=== PATIENT | female | born 1960 | race Caucasian/White ===

== ENCOUNTER 2018-04-16 13:22 | Emergency (ER) | payer OTHER ==
[~2018-04-16] VITALS: Ht 157.5 cm; Wt 59.0 kg
[~2018-04-16 13:22] MED LIST: CITA10S PO; Cyclobenzaprine5 MG PO; LEVSOD50 PO; Naprosyn500 MG PO
[2018-04-16] MEDS ORDERED: Norco 5-325 Ta1 EACH PO (14:49)
[2018-04-16] MEDS ORDERED: Baclofen10 MG PO (14:49)
== END 2018-04-16 14:55 | disposition home or self-care (01) ==
LOC: ER 13:22
DX: M62.830 Muscle spasm of back (principal); E03.9 Hypothyroidism, unspecified; Z87.891 Personal history of nicotine dependence; Z88.5 Allergy status to narcotic agent; Z88.1 Allergy status to other antibiotic agents; Z79.899 Other long term (current) drug therapy
CPT/HCPCS: 96372; 99283; J1885

== ENCOUNTER 2018-04-18 14:06 | Emergency (ER) | payer OTHER ==
[~2018-04-18] VITALS: Ht 157.5 cm; Wt 59.0 kg
[~2018-04-18 14:06] MED LIST changes: +Baclofen10 MG PO; +Norco 5-325 Ta1 EACH PO
[2018-04-18] MEDS ORDERED: Ultram50 MG PO (15:01)
== END 2018-04-18 15:05 | disposition home or self-care (01) ==
LOC: ER 14:06
DX: Z76.0 Encounter for issue of repeat prescription (principal); Z88.5 Allergy status to narcotic agent; Z88.1 Allergy status to other antibiotic agents; Z79.899 Other long term (current) drug therapy; Z87.891 Personal history of nicotine dependence
CPT/HCPCS: 99281

== ENCOUNTER → 2021-08-25 | Outpatient (CLI) | payer OTHER ==
[~2021-08-25] MED LIST changes: +BENZ100A PO; +CITA20 PO; +Citalopram HBr20 MG PO; +DIAZ5 PO; +HYDPAM50 PO; +Ultram50 MG PO
[2021-08-25 16:48] LABS: BASOPHILS ABSOLUTE AUTO 0.04 K/mm3 (0.00-0.23); BASOPHILS PERCENT AUTO 1 % (0-2); EOSINOPHILS ABSOLUTE AUTO 0.08 K/mm3 (0.00-0.68); EOSINOPHILS PERCENT AUTO 2 % (0-6); Hematocrit 41.5 % (33.0-51.0); Hemoglobin 13.7 g/dL (11.5-16.0); IMMATURE GRAN ABSOLUTE AUTO 0.01 K/mm3 (0.00-0.10); IMMATURE GRAN PERCENT AUTO 0 % (0-1); LYMPHOCYTES ABSOLUTE AUTO 2.38 K/mm3 (0.84-5.20); LYMPHOCYTES PERCENT AUTO 44 % (21-46); MONOCYTES ABSOLUTE AUTO 0.48 K/mm3 (0.16-1.47); MONOCYTES PERCENT AUTO 9 % (4-13); Mean Corpuscular HGB 29.9 pg (26.0-34.0); Mean Corpuscular Volume 91 fL (80-100); Mean Platelet Volume 11.2 fL (9.1-12.4); NEUTROPHILS ABSOLUTE AUTO 2.47 K/mm3 (1.96-9.15); NEUTROPHILS PERCENT AUTO 45 % (41-73); Platelet Count 259 K/mm3 (150-400); RDW Coefficient Variation 12.8 % (11.7-14.2); RDW Standard Deviation 42.1 fL (35.1-46.3); Red Blood Cell Count 4.58 M/mm3 (3.80-5.20); White Blood Cell Count 5.46 K/mm3 (4.00-11.30)
[2021-08-25 17:10] LABS: Alanine Aminotransfer (ALT/SGP 27 U/L (12-78); Albumin/Globulin Ratio 1.2 (0.8-1.8); Alk Phos 75 U/L (50-136); Anion Gap 4 mmol/L (6-16); Aspartate Aminotrans (AST/SGOT 18 U/L (12-37); Bilirubin, Total 0.5 mg/dL (0.1-1.0); Blood Urea Nitrogen 14 mg/dL (8-24); Bun/Creatinine Ratio 19.2 (12.0-20.0); CO2, Blood 29 mmol/L (21-32); Calcium, Blood 8.9 mg/dL (8.5-10.1); Chloride, Blood 106 mmol/L (98-108); Creatinine, Blood 0.73 mg/dL (0.40-1.00); Globulin, Blood 3.4 g/dL (2.2-4.0); Glomerular Filtration Rate >60 (60-); Glucose, Blood 92 mg/dL (70-99); Potassium, Blood 4.2 mmol/L (3.5-5.5); Sodium, Blood 139 mmol/L (136-145); Total Protein, Blood 7.4 g/dL (6.4-8.2)
== END | disposition home or self-care (01) ==
LOC: LAB SHORT 15:35
PROVIDERS: Family Medicine
DX: Z51.81 Encounter for therapeutic drug level monitoring (principal); Z79.899 Other long term (current) drug therapy
CPT/HCPCS: 80053; 85025

== ENCOUNTER → 2021-10-05 | Outpatient (CLI) | payer OTHER | END | disposition home or self-care (01) | LOC: LAB SHORT 07:48 | DX: C44.722 Squamous cell carcinoma of skin of right lower limb, including hip (principal); L85.8 Other specified epidermal thickening | CPT/HCPCS: 88305 ==

== ENCOUNTER → 2022-01-05 | Outpatient (CLI) | payer OTHER | END | disposition home or self-care (01) | LOC: LAB SHORT 09:26 → LAB 09:26 → PLD 09:26 | DX: C44.722 Squamous cell carcinoma of skin of right lower limb, including hip (principal) | CPT/HCPCS: 88305 ==

== ENCOUNTER 2025-07-11 07:25 | Day surgery (SDC) | payer OTHER ==
[~2025-07-11] VITALS: Ht 157.5 cm; Wt 56.3 kg
[2025-07-11] MEDS ORDERED: CeFAZolin Sodium 2,000 MG VIAL ONE (08:08)
[2025-07-11] MEDS ORDERED: LOSA50 PO (08:18)
[2025-07-11] MEDS ORDERED: BUPROPION XL450 M1 PO (08:18)
[2025-07-11] MEDS ORDERED: MULTIPLE VITAM1 EACH PO (08:20)
[2025-07-11] MEDS ORDERED: CALCIUM 600 +1 EA11 PO (08:20)
--- NOTE | 2025-07-11 10:26 | NUR ---
07/11/25 1026 DRAKE DOAN PT UP WALKING W/ IV POLE AND VOIDED URINE PRIOR TO SURGERY. PROCEDURE DELAYED MORE THAN AN HOUR DUE TO PREVIOUS CASE EXTENDED
[2025-07-11] MEDS ORDERED: Ondansetron HCl 2 MG / ML 2ML Vial ONE (10:34)
[2025-07-11] MEDS ORDERED: Metoclopramide HCl 5MG / ML 2ML Vial ONE (10:34)
[2025-07-11] MEDS ORDERED: Midazolam HCl 1MG / ML 2ML Vial ONE (10:34)
[2025-07-11] MEDS ORDERED: Rocuronium Bromide 10 MG/ML 5ML Injection IV ONE (10:34)
[2025-07-11] MEDS ORDERED: FentaNYL Citrate 50 MCG/ML 2 ML Injection ONE (10:34)
[2025-07-11] MEDS ORDERED: Bupivacaine 0.5% HCl 5 MG/ML 30MLVIAL INJ ONE (11:18)
[2025-07-11] MEDS ORDERED: Sugammadex Sodium 200 MG/2ML SDV (100 MG/ML) ONE (12:01)
[2025-07-11] MEDS ORDERED: Morphine Sulfate 4 MG/1 ML Injection ONE (12:22)
[2025-07-11 12:49] VITALS: BP 128/89
== END 2025-07-11 13:37 | disposition home or self-care (01) ==
LOC: ORSCSDS 07:25
PROVIDERS: Orthopaedic Surgery
PROC: 0XP60YZ Removal of Other Device from Right Upper Extremity, Open Approach (ICD-10-PCS; principal; 2025-07-11 09:30)
DX: T85.848A Pain due to other internal prosthetic devices, implants and grafts, initial encounter (principal); M25.531 Pain in right wrist; F41.9 Anxiety disorder, unspecified; F32.A Depression, unspecified; I10 Essential (primary) hypertension; E07.9 Disorder of thyroid, unspecified; F98.8 Other specified behavioral and emotional disorders with onset usually occurring in childhood and adolescence; B19.20 Unspecified viral hepatitis C without hepatic coma; Z79.899 Other long term (current) drug therapy; Z87.891 Personal history of nicotine dependence
CPT/HCPCS: A9270; J0690; J2003; J2250; J2270; J2405; J2704; J2765; J3010; J7120